=== PATIENT | female | born 1985 ===

== ENCOUNTER 2016-10-12 22:10 | Outpatient (CLI) | payer SELFPAY | END 2016-10-12 22:11 | disposition EMS.NT | DX: Z03.89 Encounter for observation for other suspected diseases and conditions ruled out (principal) ==

== ENCOUNTER 2017-04-26 02:35 | Outpatient (CLI) | payer SELFPAY | END 2017-04-26 02:36 | disposition EMS.NT | LOC: EMS 02:35 | PROVIDERS: ATTEND Surgery | DX: R10.9 Unspecified abdominal pain (principal) ==

== ENCOUNTER 2018-05-11 23:45 | Outpatient (CLI) | payer SELFPAY | END 2018-05-11 23:46 | disposition EMS.NT | LOC: EMS 23:45 | PROVIDERS: ATTEND Surgery | DX: F41.9 Anxiety disorder, unspecified (principal) ==